=== PATIENT | male | born 1990 | race Caucasian/White ===

== ENCOUNTER 2017-11-02 16:35 | Emergency (ER) | payer BC ==
[2017-11-02] MEDS ORDERED: Alum Hydrox/Mag Hydrox/Simeth 30 ML, Lidocaine 2% 15 ML PO ONE ×2 (17:12)
--- NOTE | 2017-11-02 17:19 | EDM.PDOC ---
ED HPI GENERAL MEDICAL PROBLEM - General Chief Complaint: Syncope Stated Complaint: SYNCOPE Chest Pain Score (Numeric/FACES): 3 - Related Data Allergies Allergy/AdvReac Type Severity Reaction Status Date / Time No Known Allergies Allergy Verified 11/02/17 16:48 Past Medical History - Past Health History Medical/Surgical History: Denies Medical/Surgical History Social & Family History - Tobacco Use Smoking Status *Q: Never Smoker Second Hand Smoke Exposure: No - Caffeine Use Caffeine Use: Reports: Soda - Recreational Drug Use Recreational Drug Use: No Course - Vital Signs Last Recorded V/S: Last Vital Signs Temp 98.1 F 11/02/17 16:45 Pulse 106 H 11/02/17 16:45 Resp 18 11/02/17 16:45 BP 155/96 H 11/02/17 16:45 Pulse Ox 100 11/02/17 16:45 Orthostatic Blood Pressure [ 140/106 Standing] Orthostatic Blood Pressure [ 154/102 Sitting] Orthostatic Blood Pressure [ 150/97 Supine] - Orders/Labs/Meds Orders: Active Orders 24 hr Category Date Time Status EKG Documentation Completion [RC] STAT Care 11/02/17 17:10 Ordered Chest 1V Frontal [CR] Stat Exams 11/02/17 17:10 Ordered C-REACTIVE PROTEIN [CHEM] Stat Lab 11/02/17 17:12 Ordered CBC WITH AUTO DIFF [HEME] Stat Lab 11/02/17 17:10 Ordered COMPREHENSIVE METABOLIC PN,CMP [CHEM] Stat Lab 11/02/17 17:12 Ordered Meds: Medications Discontinued Medications Generic Name Dose Route Start Last Admin Trade Name Freq PRN Reason Stop Dose Admin Al Hydroxide/Mg Hydroxide 30 0 ml 11/02/17 17:12 ml/ Lidocaine HCl 15 ml PO 11/02/17 17:13 ONETIME ONE Departure - Discharge Information Referrals: PCP,None [Primary Care Provider] - - My Orders Last 24 Hours: My Active Orders 11/02/17 17:10 EKG Documentation Completion [RC] STAT Chest 1V Frontal [CR] Stat CBC WITH AUTO DIFF [HEME] Stat 11/02/17 17:12 C-REACTIVE PROTEIN [CHEM] Stat COMPREHENSIVE METABOLIC PN,CMP [CHEM] Stat - Assessment/Plan Last 24 Hours: My Active Orders 11/02/17 17:10 EKG Documentation Completion [RC] STAT Chest 1V Frontal [CR] Stat CBC WITH AUTO DIFF [HEME] Stat 11/02/17 17:12 C-REACTIVE PROTEIN [CHEM] Stat COMPREHENSIVE METABOLIC PN,CMP [CHEM] Stat
--- NOTE | 2017-11-02 17:25 | EDM.PDOC ---
ED HPI GENERAL MEDICAL PROBLEM - General Chief Complaint: Syncope Stated Complaint: SYNCOPE Time Seen by Provider: 11/02/17 16:57 Source of Information: Reports: Patient History Limitations: Reports: No Limitations - History of Present Illness INITIAL COMMENTS - FREE TEXT/NARRATIVE: Patient presents to the E.D. complaining of mild discomfort to the epigastric region. Patient has been suffering from anxiety as of recent with increased stress at work thus having sleeping issues. He was seen by a provider in the walk[place]in clinic [place] and placed on Zolpidem to help with sleeping. Patient did not sleep more than 2 hours on Monday. Started the medication on Monday and slept okay for the past 2 days. States with becoming anxious while driving today. He developed hot sensation with tunnel vision while driving back home today. He had the faint sensation he was going to pass out. Symptoms did resolve quickly. Thus prompting evaluation in the ED. With onset of discomfort he does state his heart pounds and his chest becomes tight. States at work he has one customer that has been very difficult to work with. Thought it was related to acid reflux since he did eat a spicy lunch at 3 today. Took Pepto-Bismol with no significant change. He has no history of GERD. States his discomfort does come and go. Occurs most often at night prior to going to bed when his mind is wandering. Denies any swelling to his lower extremities and /or pain to the posterior aspect of his legs. He has no history for DVT/PE. No cardiac issues. He does not smoke and only utilizes alcohol on a sporadic basis. Caffeine use approx 3 sodas a day. No coffee. Denies any recreational drugs. There is no history of 1st degree relative with heart disease. Chest Pain Score (Numeric/FACES): 3 - Related Data Allergies Allergy/AdvReac Type Severity Reaction Status Date / Time No Known Allergies Allergy Verified 11/02/17 16:48 Past Medical History - Past Health History Medical/Surgical History: Denies Medical/Surgical History Social & Family History - Tobacco Use Smoking Status *Q: Never Smoker Second Hand Smoke Exposure: No - Caffeine Use Caffeine Use: Reports: Soda - Recreational Drug Use Recreational Drug Use: No ED ROS GENERAL - Review of Systems Review Of Systems: See Below Constitutional: Reports: Chills (at times) HEENT: Reports: No Symptoms Respiratory: Reports: No Symptoms Cardiovascular: Reports: No Symptoms GI/Abdominal: Reports: Abdominal Pain (epigastric). Denies: Black Stool, Bloody Stool, Constipation, Diarrhea, Decreased Appetite, Difficulty Swallowing , Hematemesis, Hematochezia, Nausea, Vomiting : Reports: No Symptoms Musculoskeletal: Reports: No Symptoms Skin: Reports: No Symptoms Neurological: Reports: No Symptoms Psychiatric: Reports: No Symptoms, Anxiety ED EXAM, GI/ABD - Physical Exam Exam: See Below Exam Limited By: No Limitations General Appearance: Alert, WD/WN, Anxious Eyes: Bilateral: Normal Appearance Ears: Hearing Grossly Normal Nose: Normal Inspection Throat/Mouth: Normal Voice, No Airway Compromise Neck: Normal Inspection, Supple Respiratory/Chest: No Respiratory Distress, Lungs Clear, Normal Breath Sounds, No Accessory Muscle Use Cardiovascular: Normal Peripheral Pulses, Regular Rate, Rhythm, No Murmur GI/Abdominal Exam: Normal Bowel Sounds, Soft, No Organomegaly, No Distention, Tender (epigastric region, localized with no radiation) Neurological: Alert, Oriented, CN II-XII Intact, Normal Cognition, No Motor/ Sensory Deficits Psychiatric: Normal Affect, Normal Mood Skin Exam: Warm, Dry, Intact, Normal Color Course - Vital Signs Last Recorded V/S: Last Vital Signs Temp 98.1 F 11/02/17 16:45 Pulse 106 H 11/02/17 16:45 Resp 18 11/02/17 16:45 BP 155/96 H 11/02/17 16:45 Pulse Ox 100 11/02/17 16:45 Orthostatic Blood Pressure [ 140/106 Standing] Orthostatic Blood Pressure [ 154/102 Sitting] Orthostatic Blood Pressure [ 150/97 Supine] - Orders/Labs/Meds Orders: Active Orders 24 hr Category Date Time Status EKG Documentation Completion [RC] STAT Care 11/02/17 17:10 Active Labs: Laboratory Tests 11/02/17 11/02/17 Range/Units 17:43 17:43 WBC 7.29 (4.23-9.07) K/mm3 RBC 4.70 (4.63-6.08) M/mm3 Hgb 15.1 (13.7-17.5) gm/L Hct 40.7 (40.1-51.0) % MCV 86.6 (79.0-92.2) fl MCH 32.1 (25.7-32.2) pg MCHC 37.1 H (32.2-35.5) g/dl RDW Std Deviation 38.3 (35.1-43.9) fL Plt Count 217 (163-337) K/mm3 MPV 10.4 (9.4-12.3) fl Neut % (Auto) 54.3 (34.0-67.9) % Lymph % (Auto) 33.3 (21.8-53.1) % [place] % (Auto) 10.8 (5.3-12.2) % Eos % (Auto) 0.8 (0.8-7.0) Baso % (Auto) 0.4 (0.1-1.2) % Neut # (Auto) 3.95 (1.78-5.38) K/mm3 Lymph # (Auto) 2.43 (1.32-3.57) K/mm3 [place] # (Auto) 0.79 (0.30-0.82) K/mm3 Eos # (Auto) 0.06 (0.04-0.54) K/mm3 Baso # (Auto) 0.03 (0.01-0.08) K/mm3 Manual Slide Review Normal smear Sodium 146 H (136-145) mEq/L Potassium 4.1 (3.5-5.1) mEq/L Chloride 106 (98-107) mEq/L Carbon Dioxide 24 (21-32) mEq/L Anion Gap 20.1 H (5-15) BUN 19 H (7-18) mg/dL Creatinine 1.5 H (0.7-1.3) mg/dL Est Cr Clr Drug Dosing 81.91 mL/min Estimated GFR (MDRD) 57 (>60) mL/min BUN/Creatinine Ratio 12.7 L (14-18) Glucose 121 H (74-106) mg/dL Calcium 9.2 (8.5-10.1) mg/dL Total Bilirubin 0.6 (0.2-1.0) mg/dL AST TNP ALT 32 (16-63) U/L Alkaline Phosphatase 93 (46-116) U/L C-Reactive Protein < 0.2 (<1.0) mg/dL Total Protein 8.0 (6.4-8.2) g/dl Albumin 4.8 (3.4-5.0) g/dl Globulin 3.2 gm/dL Albumin/Globulin Ratio 1.5 (1-2) Meds: Medications Discontinued Medications Generic Name Dose Route Start Last Admin Trade Name Heather PRN Reason Stop Dose Admin Al Hydroxide/Mg Hydroxide 30 0 ml 11/02/17 17:12 11/02/17 17:26 ml/ Lidocaine HCl 15 ml PO 11/02/17 17:13 45 ml ONETIME ONE Administration - Re-Assessments/Exams Free Text/Narrative Re-Assessment/Exam: No IV will be started. Patient's vital signs are stable. Labs and studies include: CBC, chem 14, CRP, chest x-ray one view, and EKG. I will also order a GI cocktail by mouth. EKG: Sinus rhythm at a rate of 92. No acute ST changes noted. Reviewed patient's labs. CBC essentially normal. She bowel revealed sodium 146, potassium 4.1, AG 20.1, B was 19, creatinine 1.5, glucose 121, and CRP less than 0.2. Patient has been up walking to the bathroom with no issues. Urine is clear. He is not having increased thirst and/or polyuria. Patient is ready be discharged home. Will discharge patient home with instructions as documented. Return precautions discussed with him. He was advised that adequate hydration is required. Will not start IV and administer fluids at this point. Departure - Departure Time of Disposition: 19:41 Disposition: Home, Self-Care 01 Condition: Good Clinical Impression: Episode of dizziness Gastritis Qualifiers: Gastritis type: unspecified gastritis Chronicity: acute Gastritis bleeding: without bleeding Qualified Code(s): K29.00 - Acute gastritis without bleeding - Discharge Information Instructions: Gastritis, Adult, Dehydration, Adult, [id number], Dizziness Referrals: PCP,None [Ordering Only Provider] - Forms: ED Department Discharge Additional Instructions: As discussed push the fluids including: Gatorade, Powerade, and water. Take Zantac 150 milligrams twice a day for the next 2 weeks. Refrain from Any beverages, spicy foods, eating or drinking within 4 hours ago bed, chocolates, or any other foods that cause aggravation. May use Maalox intermittently throughout the course today as well for gastritis-like symptoms. Follow-up with primary care provider in one week for reevaluation. Return to the ED if you develop any new or worsening symptoms. - My Orders Last 24 Hours: My Active Orders 11/02/17 17:10 EKG Documentation Completion [RC] STAT - Assessment/Plan Last 24 Hours: My Active Orders 11/02/17 17:10 EKG Documentation Completion [RC] STAT
--- NOTE | 2017-11-02 17:49 | CR ---
Chest: Portable view of the chest was obtained. Comparison: No prior chest x-ray. Heart size and mediastinum are normal. Lungs are clear. Bony structures appear grossly intact. Impression: 1. Nothing acute is seen on portable chest x-ray. Diagnostic code #1
== END 2017-11-02 19:50 | disposition home or self-care (01) ==
LOC: JD.ED 16:35
DX: K29.00 Acute gastritis without bleeding (principal); R42 Dizziness and giddiness
CPT/HCPCS: 36415; 71045; 80053; 85025; 86140; 93005; 99284; A9270; 93010; 99283